=== PATIENT | male | born 1965 | race Two or more races ===

== ENCOUNTER → 2024-09-05 | Outpatient (BNVA) | payer MEDICAID, SELFPAY | END | disposition home or self-care (01) | PROVIDERS: PCP Nurse Practitioner Family; Referring Provider Nurse Practitioner Family; Visit Provider Nurse Practitioner Family | DX: E11.65 Type 2 diabetes mellitus with hyperglycemia (principal) | CPT/HCPCS: 83036; 99214 ==

== ENCOUNTER → 2024-10-03 | Outpatient (BNVA) | payer MEDICAID, SELFPAY | END | disposition home or self-care (01) | PROVIDERS: PCP Nurse Practitioner Family; Referring Provider Nurse Practitioner Family; Visit Provider Nurse Practitioner Family | DX: E11.65 Type 2 diabetes mellitus with hyperglycemia (principal) | CPT/HCPCS: 83036; 99214 ==

== ENCOUNTER → 2024-10-19 | Outpatient (BNVA) | payer MEDICAID, SELFPAY | END | disposition home or self-care (01) | PROVIDERS: PCP Nurse Practitioner Family; Referring Provider Nurse Practitioner Family; Visit Provider Nurse Practitioner Family | DX: Z71.2 Person consulting for explanation of examination or test findings (principal); E11.65 Type 2 diabetes mellitus with hyperglycemia; Z79.4 Long term (current) use of insulin; I10 Essential (primary) hypertension; E78.5 Hyperlipidemia, unspecified; R80.9 Proteinuria, unspecified; E55.9 Vitamin D deficiency, unspecified | CPT/HCPCS: 99215 ==

== ENCOUNTER → 2024-11-07 | Outpatient (BNVA) | payer MEDICAID, SELFPAY | END | disposition home or self-care (01) | PROVIDERS: PCP Nurse Practitioner Family; Referring Provider Nurse Practitioner Family; Visit Provider Nurse Practitioner Family | DX: E11.9 Type 2 diabetes mellitus without complications (principal) | CPT/HCPCS: 83036; 99213; 99214 ==

== ENCOUNTER → 2024-11-14 | Outpatient (CLI) | payer MEDICAID, SELFPAY ==
--- NOTE | 2024-11-14 16:00 | XR_ITS ---
Examination: Retroperitoneal ultrasound, complete Technique: Multiple high resolution grayscale images of the retroperitoneum obtained, including kidneys and bladder. Exam date and time:November 14, 2024 at 1610 hours INDICATIONS: Hematuria episodes beginning one month ago FINDINGS: Right kidney 10.1 x 6.5 x 6.0 cm cortex 2.2 cm Left kidney 10.8 x 5.8 x 5.6 cm cortex 2.1 cm Multiple small benign left renal cysts, the largest in the upper pole 12 mm Mild renal parenchymal scar formation No bladder mass or bladder calculi Bladder prevoid volume 530 cc Prostate volume 23 cc calcifications no prostate nodules IMPRESSION: Mild bilateral renal parenchymal scar formation
== END | disposition home or self-care (01) ==
PROVIDERS: PCP Nurse Practitioner Family; Referring Provider Nurse Practitioner Family; Visit Provider Nurse Practitioner Family
DX: N20.0 Calculus of kidney (principal)
CPT/HCPCS: 76770

== ENCOUNTER → 2024-12-05 | Outpatient (BNVA) | payer MEDICAID, SELFPAY | END | disposition home or self-care (01) | PROVIDERS: PCP Nurse Practitioner Family; Referring Provider Nurse Practitioner Family; Visit Provider Nurse Practitioner Family | DX: E11.8 Type 2 diabetes mellitus with unspecified complications (principal); Z79.4 Long term (current) use of insulin; I10 Essential (primary) hypertension | CPT/HCPCS: 83036; 99214 ==

== ENCOUNTER → 2024-12-19 | Outpatient (BNVA) | payer MEDICAID, SELFPAY | END | disposition home or self-care (01) | PROVIDERS: PCP Nurse Practitioner Family; Referring Provider Nurse Practitioner Family; Visit Provider Nurse Practitioner Family | DX: I10 Essential (primary) hypertension (principal) | CPT/HCPCS: 99213 ==

== ENCOUNTER → 2025-01-03 | Outpatient (BNVA) | payer MEDICAID, SELFPAY | END | disposition home or self-care (01) | PROVIDERS: PCP Nurse Practitioner Family; Referring Provider Nurse Practitioner Family; Visit Provider Nurse Practitioner Family | DX: R80.9 Proteinuria, unspecified (principal); I10 Essential (primary) hypertension | CPT/HCPCS: 99214 ==

== ENCOUNTER → 2025-01-06 | Outpatient (BNVA) | payer MEDICAID, SELFPAY | END | disposition home or self-care (01) | PROVIDERS: PCP Internal Medicine; Referring Provider Internal Medicine; Visit Provider Internal Medicine | DX: R80.8 Other proteinuria (principal); Z79.4 Long term (current) use of insulin; E55.9 Vitamin D deficiency, unspecified; E11.8 Type 2 diabetes mellitus with unspecified complications; E78.5 Hyperlipidemia, unspecified | CPT/HCPCS: 99204 ==

== ENCOUNTER → 2025-01-23 | Outpatient (BNVA) | payer MEDICAID, SELFPAY | END | disposition home or self-care (01) | PROVIDERS: PCP Nurse Practitioner Family; Referring Provider Nurse Practitioner Family; Visit Provider Nurse Practitioner Family | DX: Z23 Encounter for immunization (principal); I10 Essential (primary) hypertension | CPT/HCPCS: 90471; 90677; 99214; J90677 ==

== ENCOUNTER → 2025-03-03 | Outpatient (BNVA) | payer MEDICAID, SELFPAY | END | disposition home or self-care (01) | PROVIDERS: PCP Internal Medicine; Referring Provider Internal Medicine; Visit Provider Internal Medicine | DX: R80.9 Proteinuria, unspecified (principal); Z79.4 Long term (current) use of insulin; E55.9 Vitamin D deficiency, unspecified; E11.8 Type 2 diabetes mellitus with unspecified complications; E78.5 Hyperlipidemia, unspecified | CPT/HCPCS: 99214 ==

== ENCOUNTER → 2025-03-20 | Outpatient (BNVA) | payer MEDICAID, SELFPAY | END | disposition home or self-care (01) | PROVIDERS: PCP Nurse Practitioner Family; Referring Provider Nurse Practitioner Family; Visit Provider Nurse Practitioner Family | DX: H35.60 Retinal hemorrhage, unspecified eye (principal); E11.8 Type 2 diabetes mellitus with unspecified complications; H53.8 Other visual disturbances; I10 Essential (primary) hypertension; E78.5 Hyperlipidemia, unspecified; Z79.4 Long term (current) use of insulin | CPT/HCPCS: 99214 ==

== ENCOUNTER → 2025-04-04 | Outpatient (BNVA) | payer MEDICAID, SELFPAY | END | disposition home or self-care (01) | PROVIDERS: PCP Nurse Practitioner Family; Referring Provider Nurse Practitioner Family; Visit Provider Nurse Practitioner Family | DX: Z71.2 Person consulting for explanation of examination or test findings (principal); E11.8 Type 2 diabetes mellitus with unspecified complications; E78.5 Hyperlipidemia, unspecified; Z79.4 Long term (current) use of insulin | CPT/HCPCS: 99214 ==

== ENCOUNTER 2025-04-08 21:04 | Emergency (ER) | payer MEDICAID, SELFPAY ==
[2025-04-08 21:08] VITALS: BMI 22.7
[2025-04-08 21:21] VITALS: BP 153/77; PULSE 60; RESP 18; TEMP 36.7; O2SAT 99
--- NOTE | 2025-04-08 21:32 | XR_ITS ---
Examination: CT brain head without contrast. 2-D sagittal coronal reconstructions Date and time of exam:April 08, 2025 10:33 PM INDICATIONS: Onset blurred vision today CTDI: vol (mGy):55 DLP: (mGycm):833 Technique: Multiple CT axial sections of the brain have been obtained, 5 mm slice thickness. Contrast has not been administered. 2-D sagittal, coronal reconstructions have been obtained Low dose protocols were performed. One or more of the following dose reduction techniques were used; automated exposure control, adjustment of the mA and/or KV according to patient size, use of iterative reconstruction technique. Findings: No significant ventricular enlargement. Intra-axial or extra-axial hemorrhage density is not seen. No mass effect or midline shift Basal cisterns are not remarkable. Fourth ventricle is midline. Cranial vault intact. Impression: Negative for acute hemorrhage, mass effect or midline shift 05/13/1931 If symptoms persist, consider brain MR bilateral, stroke protocol
--- NOTE | 2025-04-08 21:33 | PD.EDRME ---
Rapid Medical Screening Exam RME Arrival date/time: 04/08/25 21:04 This is a case of a 59-year-old male who has a history of diabetes came in in the emergency room due to high blood sugar blurring of vision headache for the past 2 weeks with some generalized weakness Chief Complaint: General Adult/Misc Complain Time Seen by Provider: 04/08/25 21:32 Vital signs: Vital Signs Temperature 98.1 F 04/08/25 21:21 Pulse Rate 60 04/08/25 21:21 Respiratory Rate 18 04/08/25 21:21 Blood Pressure 153/77 H 04/08/25 21:21 Pulse Oximetry (%) 99 04/08/25 21:21 Oxygen Delivery Method Room Air 04/08/25 21:21
[2025-04-08 22:02] LABS: Base Excess, Venous 3 (-3-3); O2 Saturation, Venous 40 % (96-97); PCO2, Venous 54 mmHg (36-56); PO2, Venous 24 mmHg (15-58); pH, Venous 7.36 (7.33-7.66)
[2025-04-08 22:03] LABS: Basophils # (Auto) 0.1 Thou/mm3 (0.0-0.2); Basophils % (Auto) 1 % (0-2.5); Eosinophils # (Auto) 0.1 Thou/mm3 (0.0-0.5); Eosinophils % (Auto) 1 % (0-10); Hematocrit 39.3 % (41.0-53.0); Hemoglobin 13.9 g/dL (13.5-16.0); Immature Granulocytes Auto 0.02 Thou/mm3 (0.00-0.00); Lymphocytes # (Auto) 2.8 Thou/mm3 (1.0-4.8); Lymphocytes % (Auto) 36 % (10-50); Mean Corpuscular HGB Conc 35.4 g/dl (31.0-37.0); Mean Corpuscular Hemoglobin 31.2 pg (25.0-35.0); Mean Corpuscular Volume 88 fL (80-100); Monocytes # (Auto) 0.7 Thou/mm3 (0.0-0.8); Monocytes % (Auto) 9 % (0-12); Neutrophils # (Auto) 4.1 Thou/mm3 (1.8-7.7); Neutrophils % (Auto) 53 % (37-80); Nucleated Red Blood Cell # 0.00 Thou/mm3 (0.00-0.00); Nucleated Red Blood Cell % 0 /100 WBC (0); Platelet Count 223 Thou/mm3 (140-440); RDW Standard Deviation 40.8 fL (35.1-43.9); Red Blood Count 4.46 Miln/mm3 (4.50-5.90); White Blood Count 7.7 Thou/mm3 (3.8-10.6)
[2025-04-08 22:09] LABS: Collection Type, Urine Voided; Squamous Epithelial Cell,Urine 0 /hpf (0-5)
[2025-04-08 22:11] LABS: Beta Hydroxybutyrate 0.2 mmol/L (<0.6)
[2025-04-08 22:20] LABS: Bilirubin,Urine Negative (Negative); Blood,Urine Negative (Negative); Clarity,Urine Clear (Clear/Hazy); Color,Urine Colorless (Lt Yel-Yel); Glucose, Urine 4+ (Negative); Ketones,Urine Negative (Negative); Leukocyte Esterase,Urine Negative (Negative); Nitrite,Urine Negative (Negative); PH,Urine 6.0 (5.0-7.0); Protein,Urine Negative (Neg - Trace); RBC,Urine 1 /hpf (0-3); Specific Gravity,Urine 1.026 (1.001-1.035); Urobilinogen,Urine Negative mg/dL (0.0-1.0); WBC,Urine < 1 /hpf (0-5)
[2025-04-08 22:26] LABS: Alanine Aminotransferase 15 U/L (10-49); Albumin, Serum 4.3 gm/dL (3.5-5.0); Albumin/Globulin Ratio 1.9 (1.2-2.2); Alkaline Phosphatase 97 U/L (46-116); Anion Gap 8 (7-16); Aspartate Amino Transferase 16 U/L (0-34); BUN/Creatinine Ratio 16 Ratio (12-20); Bilirubin,Total 0.5 mg/dL (0.3-1.2); Blood Urea Nitrogen 23 mg/dL (9-23); Calcium 9.4 mg/dL (8.3-10.6); Calcium (Corrected) 9.4 mg/dL (8.5-10.1); Carbon Dioxide 27.5 mMol/L (20.0-31.0); Chloride 103 mMol/L (98-107); Creatinine (Component) 1.4 mg/dL (0.6-1.3); Estimated Creatinine Clearance 52.5 mL/min (>60); Globulin 2.3 gm/dL (2.3-3.5); Glucose 366 mg/dL (74-106); Osmolality,Calculated 294 (275-295); Potassium 4.6 mMol/L (3.4-5.1); Sodium 138 mMol/L (136-145); Total Protein 6.6 gm/dL (5.7-8.2); eGFR 59 See Note
[2025-04-09] MEDS: SODIUM CHLORIDE 0.9% 1000 ML 1,000 ML 999 ML IV (00:04)
[2025-04-09] MEDS: INSULIN LISPRO (AdmeLOG) 1 UNIT/0.01 ML UNIT 5 UNIT SC (00:13)
[2025-04-09 00:15] VITALS: BP 123/72; PULSE 53; RESP 18; TEMP 36.6; O2SAT 98
--- NOTE | 2025-04-09 00:26 | PC.NURSE ---
Case Consult 04/09/2025 00:26:13 [facility] Case # [id number] has been created.
--- NOTE | 2025-04-09 02:14 | EDNOTE_ITS ---
ED General RME/HPI General Chief complaint: General Adult/Misc Complain Stated complaint: HIGH BLOOD SUGAR VISION DISTURBANCE Time Seen by Provider: 04/08/25 21:32 Arrival date/time: 04/08/25 21:04 RME / HPI RME / HPI narrative: 04/08/25 21:04 This is a case of a 59-year-old male who has a history of diabetes came in in the emergency room due to high blood sugar blurring of vision headache for the past 2 weeks with some generalized weakness Related Data Previous Rx's ?Medication ?Instructions ?Recorded blood-glucose sensor (Dexcom G6 #3 ea 01/06/25 Sensor device) blood-glucose transmitter (Dexcom #1 ea 01/06/25 G6 Transmitter device) blood-glucose,temperature inspector,cont #1 ea 01/06/25 (Dexcom G6 Substation Electrician Supervisor) ketoconazole 2 % topical cream 1 applic topical BID ND N rash #60 03/03/25 grams pen needle, diabetic 31 gauge x #100 ea 03/20/2510/08 (Pen Needle) aspirin 81 mg tablet,delayed 81 mg PO QDAY #90 tabs release (Adult Aspirin Regimen) atorvastatin 40 mg tablet 40 mg PO QHS #90 tabs empagliflozin 25 mg tablet 25 mg PO QAM #90 tabs 04/06 (Jardiance) hydrochlorothiazide 25 mg tablet 25 mg PO QDAY #90 tab s 04/06/25 insulin glargine 100 unit/mL (3 20 unit (0.2 mL) subcu t BID 90 04/06/25 mL) subcutaneous pen (Lantus days #36 mL Solostar U-100 Insulin) losartan 100 mg tablet 100 mg PO QDAY #90 tabs 12/27 metformin 1,000 mg tablet 1,000 mg PO BID #90 tabs 12/27 semaglutide 2 mg/dose (8 mg/3 mL) 2 mg (0.75 mL) subcu t QWEEK 4 04/06/25 subcutaneous pen injector (Ozempic) weeks #3 mL Allergies Allergy/AdvReac Type Severity Reaction Status Date / Time No Known Allergies Allergy Verified 04/08/25 21:19 Review of Systems Review of Systems Systems Reviewed: All systems reviewed, normal except as documented ED Exam Narrative Physical exam: GENERAL: NAD, AAOx3 HEENT: Moist mucosa. Eyes open, symmetrical, & red, blindness bilaterally CARDIO: Heart RRR, no obvious murmurs PULM: No noted coughing/dyspnea CTA B/L, no R/W/R GI: Abdomen soft, nondistended, no pain on palpation. BSx4 SKIN/MSK/EXT: No wounds/rashes/edema/amputations, no pain on palpation. Pedal pulses present B/L Course Quality Measures none Orders Category Date Time Status IV [Insert IV] NOW Care 04/09/25 00:01 Completed Consult to Neurology / Tele-Neurology Stat Cons 04/09/25 00:[address] head/brain wo con Stat Exams 04/08/25 21:32 Completed Beta Hydroxybutyrate Stat Lab 04/08/25 21:51 Completed CBC Stat Lab 04/08/25 21:51 Completed CMP [Comprehensive Metabolic Panel] Stat Lab 04/08/25 21:51 Completed Urinalysis Stat Lab 04/08/25 21:45 Completed Venous Blood Gas Stat Lab 04/08/25 21:51 Completed INSULIN LISPRO (AdmeLOG) [HumaLOG] Med 04/08/25 23:36 Discontinued 5 unit SC X1 ONE Insulin Regular Med 04/08/25 21:32 Discontinued 10 unit IV X1 ONE Sodium Chloride 0.9% 1000 ml [Ns] 1,000 ml Med 04/08/25 21:33 Discontinued IV 999 mls/hr Vital Signs Vital signs: Vital Signs Temperature 98.1 F 04/08/25 21:21 Pulse Rate 60 04/08/25 21:21 Respiratory Rate 18 04/08/25 21:21 Blood Pressure 153/77 H 04/08/25 21:21 Pulse Oximetry (%) 99 04/08/25 21:21 Oxygen Delivery Method Room Air 04/08/25 21:21 Discharge Plan Plan Patient Disposition: HOME (Self Care) Prescriptions/Referrals Prescriptions/Med Rec: No Action (DME) pen needle, diabetic [Pen Needle] 31 gauge x 1/4 needle See Rx Instructions .Route Qty: 100 2RF Rx Instructions: As directed (DME) Dexcom G6 Substation Electrician Supervisor Misc See Rx Instructions .Route Qty: 1 5RF Rx Instructions: As directed (DME) Dexcom G6 Sensor Device See Rx Instructions .Route Qty: 3 5RF Rx Instructions: As directed (DME) Dexcom G6 Transmitter Device See Rx Instructions .Route Qty: 1 6RF Rx Instructions: As directed ketoconazole 2 % cream 1 applic topical BID PRN (Reason: rash) Qty: 60 2RF Ozempic 2 mg/dose (8 mg/3 mL) pen injector 2 mg subcut QWEEK 28 Days Qty: 3 0RF metformin 1,000 mg tablet 1,000 mg PO BID Qty: 90 0RF losartan 100 mg tablet 100 mg PO QDAY Qty: 90 0RF Rx Instructions: Directions in Tristanian insulin glargine [Lantus Solostar U-100 Insulin] 100 unit/mL (3 mL) insulin pen 20 unit subcut BID 90 Days Qty: 36 3RF hydrochlorothiazide 25 mg tablet 25 mg PO QDAY Qty: 90 0RF Jardiance 25 mg tablet 25 mg PO QAM Qty: 90 0RF aspirin [Adult Aspirin Regimen] 81 mg tablet,delayed release (DR/EC) 81 mg PO QDAY Qty: 90 0RF Rx Instructions: Directions in [place]istanian atorvastatin 40 mg tablet 40 mg PO QHS Qty: 90 0RF Referrals: Rom[facility],Sybil Krishnan [facility] [Primary Care Provider] - In 1 week Problem List Clinical Impression: Diabetic retinopathy, Diabetic retinopathy associated with controlled type 2 diabetes mellitus Patient/Caregiver Discharge Instructions Education Materials: Diabetic Retinopathy Additional Instructions: Follow-up with your primary doctor within 1 week of leaving the ER and asked for a referral to ophthalmology Please control your blood sugars and continue taking your insulin and diabetic medications as prescribed Your blood sugars should be below 180 Continue to use your continuous glucose monitoring device and make adjustments to your insulin regimen based on sugar readings Should your symptoms recur or worsen patient is instructed to return to the ED Print Language: Tristanian Stand Alone Forms: [employer] Award Info., Patient Portal Info Letter MDM Narrative MDM hospital course: 59-year-old male with past medical history of diabetes who presented to the ED due to blindness. Patient apparently 2 months ago suffered a work-related injury and became blind on his left eye seeing completely black. 1 week ago patient suddenly developed right eye blurry vision and parasite amount he can only see some lights. Patient apparently is also very uncontrolled diabetes. Head CT reviewed no evidence of acute hemorrhage, midline shift, mass effect 0130: Ordered lispro 5 units subcu as patient's blood sugar was 233 and IVFs 0250: Spoke to teleneurology who stated considering the patient's diabetic retinopathy diagnosis and nature of his condition patient would benefit from following up as outpatient with ophthalmology Patient at this time is safe for discharge. Should any symptoms recur or worsen patient is instructed to return to the ER. Clinical Information Provided by patient Medical Records Reviewed None Lab Interpretation Lab(s) interpretation(s): CBC unremarkable, mild MITCH Imaging Radiology reports / interpretation(s): See radiology report for head CT Medication Administration(s) Medication Administration History Discontinued Medications Sodium Chloride (Ns) 1,000 mls @ 999 mls/hr IV .Q1H1M ONE Stop: 04/08/25 22:33 Last Infusion: 04/09/25 01:11 Dose: Infused Documented By: Admin: 04/09/25 00:04 Dose: 999 mls/hr Documented By: OMAR Insulin Human Lispro (Insulin Lispro (Admelog) 1 Unit/0.01 Ml Unit) 5 unit SC X1 ONE Stop: 04/08/25 23:37 Last Admin: 04/09/25 00:13 Dose: 5 unit Documented By: OMAR Co-signed By: Insulin Human Regular (Insulin Hum Regular 1 Unit/0.01 Ml (Per Unit)) 10 unit IV X1 ONE Stop: 04/08/25 21:33 Last Admin: 04/08/25 23:53 Dose: Not Given Documented By: OMAR Non-Admin Reason: Discontinued See above Diagnosis Differential diagnosis: Diabetic retinopathy, stroke Most likely dx, and/or detailed dx discussion: Diabetic retinopathy Dispositon Disposition: Discharge Home
[2025-04-09 02:42] VITALS: BP 116/71; PULSE 61; RESP 16; TEMP 36.6; O2SAT 98
--- NOTE | 2025-04-09 02:50 | PD.TNEURO ---
Tele Neuro Consultation Consultation Date 04/09/25 Most Recent Vital Signs Last Vital Signs Temp 97.8 F 04/09/25 02:42 Pulse 61 04/09/25 02:42 Resp 16 04/09/25 02:42 BP 116/71 04/09/25 02:42 Pulse Ox 98 04/09/25 02:42 O2 Del Method Room Air 04/09/25 02:42 Consultation Narrative [facility] TeleNeurology Consult Services Stat Consult Patient Name:???Jacinto Ott Date of :???1965 Identification Number:??? Date of Service:???04/09/2025 00:26:13 Diagnosis:?H53.8 - Blurred Vision Impression This consult was conducted in real-time using interactive audio and video technology. Patient was informed of the technology being used for this visit and agreed to proceed. Patient located in hospital and provider located at home/office setting. This is a 59 year old M with DM who presents to [place], [place] for complaints of the symptoms described below. He is Tongan-speaking so son assists. They report he has had progressive bilateral vision loss over the past two months, now seeing mostly shadows. The patient's son, who is present at the bedside and assisting with translation, reports that they have recently seen an eye doctor who already diagnosed the problem as diabetic retinopathy. The vice president of operations noted retinal hemorrhages on eye examination and provided a referral to a specialist for further treatment of the diabetic retinopathy. However, the patient has not yet been able to follow up with the specialist as he is still on the waiting list. I asked them why he came to the emergency department today for this chronic problem, and the son states that the reason for today's visit is because it just keeps worsening slowly and he has not been able to see the specialist yet. I tried to question multiple times on if something specifically happened today to prompt a visit to an emergency room, but what they state just because it is still worsening and they havent seen the public finance specialist yet. On neurological examination, the patient demonstrates no focal deficits. A computed tomography (CT) scan of the head was performed and revealed no acute abnormalities. This problem appears to already have been diagnosed as diabetic retinopathy by formal eye exam by an eye doctor, and this indeed appears to match the story of progressive nature and poorly controlled diabetes. The progressive decline is not suggestive of an acutely intervenable neurological process, and he has had symptoms now for many weeks. It is reassuring that CTH is negative despite symptoms for weeks to months. Management will be with ophthalmology and endocrinology, typically on an outpatient basis. Recommendations: - Diabetes control per endocrinology and PCP. - Ophthalmology evaluation - may consider laser therapy for diabetic retinopathy. Can be done outpatient, or in ED if ophthalmology is available. - From a neurologic perspective, additional emergent tests are not requested for this chronic problem. From a neurologic perspective, acute admission for neurologic management is not requested at this time. If admission is requried for other medical reasons, please defer to primary team. Advanced Imaging: Advanced Imaging Deferred because: Current physical exam at the time of my assessment is not highly suggestive of an acute surgically intervenable large vessel occlusion. Additionally, symptoms present for months. Metrics: Dispatch Time: 04/09/2025 00:26:13 Callback Response Time: 04/09/2025 00:27:38 Primary Provider Notified of Diagnostic Impression and Management Plan on: 04/09/2025 02:49:50 CT HEAD: I personally reviewed all the CT images that were available to me and it showed:?no acute pathology Chief Complaint: Progressive vision decline. History of Present Illness:Patient is a 59 year old Male. This is a 59 year old M with DM who presents to [place], [place] for complaints of the symptoms described below. He is Tongan-speaking so son assists. They report he has had progressive bilateral vision loss over the past two months, now seeing mostly shadows. The patient's son, who is present at the bedside and assisting with translation, reports that they have recently seen an eye doctor who already diagnosed the problem as diabetic retinopathy. The vice president of operations noted retinal hemorrhages on eye examination and provided a referral to a specialist for further treatment of the diabetic retinopathy. However, the patient has not yet been able to follow up with the specialist as he is still on the waiting list. I asked them why he came to the emergency department today for this chronic problem, and the son states that the reason for today's visit is because it just keeps worsening slowly and he has not been able to see the specialist yet. I tried to question multiple times on if something specifically happened today to prompt a visit to an emergency room, but what they state just because it is still worsening and they havent seen the public finance specialist yet. On neurological examination, the patient demonstrates no focal deficits. A computed tomography (CT) scan of the head was performed and revealed no acute abnormalities. Past Medical History: Other PMH:? DM Medications: No Anticoagulant use? No Antiplatelet use Reviewed EMR for current medications Allergies:? Reviewed Social History: Drug Use: No Family History: There is no family history of premature cerebrovascular disease pertinent to this consultation ROS : 14 Points Review of Systems was performed and was negative except mentioned in HPI. Past Surgical History: There Is No Surgical History Contributory To Today?s Visit Examination: BP(116/71),?Pulse(61), 1A: Level of Consciousness - Alert; keenly responsive?+ 0 1B: Ask Month and Age - Both Questions Right?+ 0 1C: Blink Eyes & Squeeze Hands - Performs Both Tasks?+ 0 2: Test Horizontal Extraocular Movements - Normal?+ 0 3: Test Visual So - No Visual Loss?+ 0 4: Test Facial Palsy (Use Grimace if Obtunded) - Normal symmetry?+ 0 5A: Test Left Arm Motor Drift - No Drift for 10 Seconds?+ 0 5B: Test Right Arm Motor Drift - No Drift for 10 Seconds?+ 0 6A: Test Left Leg Motor Drift - No Drift for 5 Seconds?+ 0 6B: Test Right Leg Motor Drift - No Drift for 5 Seconds?+ 0 7: Test Limb Ataxia (FNF/Heel-Michael) - No Ataxia?+ 0 8: Test Sensation - Normal; No sensory loss?+ 0 9: Test Language/Aphasia - Normal; No aphasia?+ 0 10: Test Dysarthria - Normal?+ 0 11: Test Extinction/Inattention - No abnormality?+ 0 NIHSS Score:?0 Spoke with :?ed provider This consult was conducted in real time using interactive audio and video technology. Patient was informed of the technology being used for this visit and agreed to proceed. Patient located in hospital and provider located at home/office setting. Patient is being evaluated for possible acute neurologic impairment and high probability of imminent or life - threatening deterioration.I spent total of 35 minutes providing care to this patient, including time for face to face visit via telemedicine, review of medical records, imaging studies and discussion of findings with providers, the patient and / or family. Dr Vinnie Alvarez [facility] For Inpatient follow-up with [facility] physician please call [facility] at . As we are not an outpatient service for any post hospital discharge needs please contact the hospital for assistance. If you have any questions for the [facility] physicians or need to reconsult for clinical or diagnostic changes please contact us via [facility] at .
[2025-04-09 04:18] VITALS: BP 140/70; PULSE 60; RESP 16; TEMP 36.5; O2SAT 96
== END 2025-04-09 04:20 | disposition home or self-care (01) ==
PROVIDERS: Emergency Provider Nurse Practitioner Family; PCP Nurse Practitioner Family
DX: E11.65 Type 2 diabetes mellitus with hyperglycemia (principal); E11.319 Type 2 diabetes mellitus with unspecified diabetic retinopathy without macular edema; Z79.85 Long-term (current) use of injectable non-insulin antidiabetic drugs; Z79.4 Long term (current) use of insulin
CPT/HCPCS: 36415; 70450; 80053; 81001; 82010; 82803; 85025; 96360; 96372; 99284; J1815; J7030

== ENCOUNTER → 2025-04-12 | Outpatient (BNVA) | payer MEDICAID, SELFPAY | END | disposition home or self-care (01) | PROVIDERS: PCP Nurse Practitioner Family; Referring Provider Nurse Practitioner Family; Visit Provider Nurse Practitioner Family | DX: E11.9 Type 2 diabetes mellitus without complications (principal); Z79.4 Long term (current) use of insulin | CPT/HCPCS: 99213 ==

== ENCOUNTER → 2025-04-14 | Outpatient (BNVA) | payer MEDICAID, SELFPAY | END | disposition home or self-care (01) | PROVIDERS: PCP Internal Medicine; Referring Provider Internal Medicine; Visit Provider Internal Medicine | DX: R80.9 Proteinuria, unspecified (principal); E55.9 Vitamin D deficiency, unspecified; E11.9 Type 2 diabetes mellitus without complications; E78.5 Hyperlipidemia, unspecified; Z79.4 Long term (current) use of insulin; N17.9 Acute kidney failure, unspecified | CPT/HCPCS: 99214 ==

== ENCOUNTER → 2025-05-05 | Outpatient (BNVA) | payer MEDICAID, SELFPAY | END | disposition home or self-care (01) | PROVIDERS: PCP Nurse Practitioner Family; Referring Provider Nurse Practitioner Family; Visit Provider Nurse Practitioner Family | DX: E11.65 Type 2 diabetes mellitus with hyperglycemia (principal); Z79.4 Long term (current) use of insulin | CPT/HCPCS: 83036; 99214 ==

== ENCOUNTER → 2025-05-31 | Outpatient (BNVA) | payer MEDICAID, SELFPAY | END | disposition home or self-care (01) | PROVIDERS: PCP Nurse Practitioner Family; Referring Provider Nurse Practitioner Family; Visit Provider Nurse Practitioner Family | DX: E11.65 Type 2 diabetes mellitus with hyperglycemia (principal); K21.9 Gastro-esophageal reflux disease without esophagitis; E11.319 Type 2 diabetes mellitus with unspecified diabetic retinopathy without macular edema; H35.049 Retinal micro-aneurysms, unspecified, unspecified eye | CPT/HCPCS: 83036; 99214 ==

== ENCOUNTER → 2025-07-21 | Outpatient (BNVA) | payer MEDICAID, SELFPAY | END | disposition home or self-care (01) | PROVIDERS: PCP Internal Medicine; Referring Provider Internal Medicine; Visit Provider Internal Medicine | DX: R80.9 Proteinuria, unspecified (principal); E55.9 Vitamin D deficiency, unspecified; E78.5 Hyperlipidemia, unspecified; E11.65 Type 2 diabetes mellitus with hyperglycemia; Z79.4 Long term (current) use of insulin; N17.9 Acute kidney failure, unspecified | CPT/HCPCS: 99213 ==